=== PATIENT | male | born 1990 | race Caucasian/White ===

== ENCOUNTER 2016-09-11 23:20 | Emergency (ER) | payer BC, OTHER ==
--- NOTE | ~2016-09-11 | CR72 ---
[facility]. [facility] A Service of [facility] & [facility] RADIOLOGY TEXT RESULTS PATIENT: DONNIE DIANA LOCATION: SEDOF [id number] : [birth year] UNIT #: [id number] AGE: [address]: INDIO ENAMORADO MD SEX: M ORDER DR: [id number] [address] [address] [id number] MR#: [id number] #: [id number] NAME: DONNIE DIANA : 1990 SEX: M STUDY DATE/TIME: 09/11/2016 23:09 UNIT: SEDOF ROOM: [facility] STUDY DESCRIPTION: CR Chest Single View Portable Attending Physician: Indio Enamorado M.D. Ordering Physician: Nilton Estrada M.D. Primary Care Physician: Primary Care Physician No MEDICAL IMAGING REPORT This report is preliminary unless electronic signature is present. EXAM Portable chest HISTORY Shortness of air. Drug abuse. Meth today. FINDINGS A single AP portable view of the chest shows both lungs to be clear. The heart is normal in size. The mediastinal contour is normal. No significant bone abnormalities are seen. IMPRESSION Normal portable chest. Dictated by... Marquis Espinoza M.D. THIS IS AN ELECTRONICALLY VERIFIED REPORT Marquis Espinoza M.D. at 09/12/2016 3:20 PM DFL/jackson TD: 09/12/2016 09:02 JOB #: [id number] MEDICAL IMAGING REPORT
--- NOTE | ~2016-09-11 | EKG ---
PATIENT: DONNIE DIANA UNIT #: [id number] Ventricular Rate: 120 BPM Atrial Rate: 120 BPM P-R Interval: 128 ms QRS Duration: 94 ms Q-T Interval: 350 ms QTC Calculation(Bezet): 494 ms P Notus: 82 degrees Calculated R Notus: 94 degrees Calculated T Notus: 72 degrees Diagnosis Line: Sinus tachycardia Diagnosis Line: Rightward axis Diagnosis Line: Borderline ECG Diagnosis Line: No previous ECGs available Diagnosis Line: Confirmed by VERONICA RATLIFF MD ([id number]) on Diagnosis Line: 09/13/2016 12:22:14 PM INTERPRETING MD: YONI
[2016-09-11 23:17] LABS: BASOPHIL% 0.4 % (0-2.5); EOSINOPHIL# 0.1 X10e3 (0-0.7); EOSINOPHIL% 0.7 % (0.0-7.0); HEMATOCRIT 41.8 % (38.0-50.0); HEMOGLOBIN 14.4 gm/dL (13.0-16.0); LYMPHOCYTE# 3.2 X10e3 (1.0-3.5); LYMPHOCYTE% 32.6 % (17.0-45.0); MEAN CELL VOLUME 88.9 FL (83-96); MEAN CORPUSCULAR HEMOGLOBIN 30.7 PG (28-34); MEAN CORPUSCULAR HGB CONC 34.6 g/dL (30-36); MEAN PLATELET VOLUME 7.2 FL (6.5-11.5); MONOCYTE# 0.7 X10e3 (0-1.0); NEUTROPHIL# 5.9 X10e3 (1.5-7.1); NEUTROPHIL% 59.3 % (40-75); PLATELET COUNT 309 X10e3 (140-420); RED CELL DISTRIBUTION WIDTH 13.4 % (11.0-15.5); WHITE BLOOD COUNT 9.9 X10e3 (4.0-10.5)
[2016-09-11 23:18] LABS: DIFF IND NO
[~2016-09-11 23:20] MED LIST: AMITRYPTYLINE PO; COGENTIN PO; LORTAB 101 TAB 10/5 PO; NO MEDICATIONS; PERIACTIN4 MG PO; RISPERIDONE PO; SEROQUEL PO; TRILEPTAL PO; VISTARIL PO
[2016-09-11 23:23] LABS: INR 1.3; PROTHROMBIN TIME (PATIENT) 14.5 SECONDS (9.5-12.4)
[2016-09-11 23:31] LABS: PARTIAL THROMBOPLASTIN TIME 26.8 SECONDS (25.6-38.1)
[2016-09-11 23:32] LABS: ALBUMIN SERUM 5.1 g/dL (3.5-5.0); ALKALINE PHOSPHATASE 110 U/L (32-92); ALT (SGPT) 86 U/L (10-40); AST (SGOT) 63 U/L (10-42); BILIRUBIN, DIRECT 0.1 mg/dL (0.0-0.2); BILIRUBIN,INDIRECT 0.6 mg/dL (0.0-0.9); BILIRUBIN,TOTAL 0.7 mg/dL (0.2-2.0); BLOOD UREA NITROGEN 15 mg/dL (9-23); CALCIUM SERUM 10.1 mg/dL (8.4-10.2); CARBON DIOXIDE 23 mmol/L (22-31); CHLORIDE 102 mmol/L (100-111); GLOM FILT RATE Estimated ABOVE60 mL/min (>60); GLUCOSE FASTING 118 mg/dL (70-110); POTASSIUM 3.3 mmol/L (3.5-5.1); PROTEIN TOTAL SERUM 8.6 g/dL (6.0-8.3); SODIUM 135 mmol/L (135-145)
[2016-09-11 23:36] LABS: POC - CKMB 10.1 ng/mL (0.0-7.9); POC - TROPONIN <0.05 ng/mL (<=0.05)
[2016-09-11 23:38] LABS: DDIMER <200 NG/ML (0-200)
[2016-09-11 23:52] LABS: URINE SOURCE CLEAN CATCH
[2016-09-11 23:54] LABS: URINE APPEARANCE CLEAR; URINE BILIRUBIN NEG (NEG); URINE BLOOD NEG (NEG); URINE COLOR YELLOW; URINE GLUCOSE NEG (NORM); URINE KETONE NEG (NEG); URINE LEUKOCYTE ESTERASE NEG (NEG); URINE NITRATE NEG (NEG); URINE PH 7.5 (5-8); URINE PROTEIN NEG (NEG); URINE SPECIFIC GRAVITY <=1.005 (1.003-1.035); URINE UROBILINOGEN 0.2 MG/DL (NORM)
[2016-09-11 23:55] LABS: MICRO INDICATED? NO
[2016-09-12 00:04] LABS: AMPHETAMINE POS (NEG); BARBITURATES NEG (NEG); BENZODIAZEPINES NEG (NEG); COCAINE NEG (NEG); MARIJUANA NEG (NEG); OPIATES NEG (NEG); TRICYCLIC ANTIDEPRESSANTS POS (NEG); U METHADONE NEG (NEG)
[2016-09-12] MEDS ORDERED: AMITRIPTYLINE H25 MG PO (08:09)
[2016-09-12] MEDS ORDERED: COGENTIN1 MG PO (08:10)
[2016-09-12] MEDS ORDERED: COGENTIN1 M1 PO (08:10)
[2016-09-12] MEDS ORDERED: PERIACTIN4 M1 PO (08:11)
[2016-09-12] MEDS ORDERED: HYDROXYZINE HCL50 MG PO (08:12)
== END 2016-09-12 02:50 | disposition home or self-care (01) ==
LOC: SED 23:20
PROVIDERS: Emergency Medicine
DX: F15.10 Other stimulant abuse, uncomplicated (principal); M62.82 Rhabdomyolysis; J45.909 Unspecified asthma, uncomplicated
CPT/HCPCS: 36415; 71010; 80048; 80076; 80307; 81003; 82550; 82553; 83874; 84484; 85025; 85379; 85610; 85730; 87491; 87591; 93005; 96361; 96374; 99285; J2060

== ENCOUNTER 2016-09-12 05:10 | Inpatient (IN) | payer BC, OTHER ==
--- NOTE | ~2016-09-12 | DS ---
Unit #: [id number] #: [id number] Patient: DONNIE DIANA [id number] [address] [place], [place] [address] [id number] MR#: [id number] NAME: DONNIE DIANA ROOM: 213 Age: 26 Sex: M Admission Date: 09/12/2016 : 1990 Discharge Date: 09/14/2016 Attending Physician: Justus Murphy M.D. Primary Care Physician: No Primary Care Physician DISCHARGE SUMMARY DIAGNOSIS ON ADMISSION Acute rhabdomyolysis. DIAGNOSES ON DISCHARGE 1. Acute rhabdomyolysis, resolved. 2. Chronic hepatitis C. 3. Bronchial asthma. LABS AND PROCEDURES DONE LABORATORY: The patient's creatinine is 0.9, sodium 139, potassium is 4.1. AST 35, ALT was 52. INR was 1.3. The patient's WBC is 7.9, hemoglobin was 13.5, platelet count was 245. Urinalysis was negative. Urine tox screen was positive for amphetamines and tricyclic antidepressants. The patient's total CK on admission was 3209. Yesterday it was 1019 and improving. Magnesium level is 2.1. IMAGING: Chest x-ray was normal. HOSPITAL COURSE A 26-year-old male was admitted with acute rhabdomyolysis. Details are as per admission H and P. The patient was treated with IV fluids. Patient has responded well and is feeling much better. Patient had last used heroin prior to the admission. Patient has complained of initially some burning on urination. Urinalysis is negative. Urine test was sent for gonorrhea and chlamydia but it seems like it was not done. Patient currently denies having and symptom so I advised him to follow up with his primary care physician. PHYSICAL EXAMINATION GENERAL: Today patient is comfortable, is not in acute distress. VITAL SIGNS: Reveal a temperature of 98 degrees, pulse is 87 per minute, respiratory rate is 16 per minutes, blood pressure 108/72. HEENT: Examination revealed no conjunctival congestion. Sclerae are anicteric. NECK: Neck is supple. Trachea is central. RESPIRATORY: Examination revealed breath sounds equal bilaterally. There are no wheezes or crackles. HEART: Heart is regular rate and rhythm, S1, S2. ABDOMEN: Abdomen is soft, nontender. Bowel sounds are present in all four quadrants. NEUROLOGIC: Neurologically the patient is alert to person, place and time. Power is 5/5 bilaterally. Sensations are grossly intact. SKIN: Skin is warm and dry. Unit #: [id number] #: [id number] Patient: DONNIE DIANA CONSULTATION Dr. Basurto was requested to see patient in consult but he has not seen patient so far. Patient stated that he will follow up with his own psychiatrist. RECOMMENDATIONS ON DISCHARGE 1. Condition stable. 2. Activity as tolerated. DISCHARGE MEDICATIONS Medications are: 1. Amitriptyline 25 mg p.o. daily. 2. Periactin 4 mg p.o. t.i.d. 3. Cogentin 1 mg p.o. q.a.m. and 2 mg p.o. q.h.s. 4. Vistaril 25 mg p.o. t.i.d. p.r.n. which is a home medication. FOLLOWUP Patient is advised to follow up with: 1. Primary care physician in one week. 2. Psychiatry in one to two weeks. NOTE Patient is advised to call primary care physician or go to ER if his condition changes. Patient's father states that he is planning to take patient to [place] for rehab but I have advised patient to call our office in two to three days to know the results of urine gonorrhea and chlamydia. The patient states they will call even if they go to [place]. The plan was discussed in detail with the patient. The plan has also been discussed with the patient's parents. Dictated by... Dexter Rizo TD: 09/14/2016 15:19 JOB #: [id number] DISCHARGE SUMMARY X Belkys Echavarria MD X DISCHARGE SUMMARY
--- NOTE | ~2016-09-12 | HP ---
Unit #: [id number] #: [id number] Patient: DONNIE DIANA 1990 [facility] [address] [place], [place] [address] [id number] MR#: [id number] NAME: DONNIE DIANA ROOM: 213 Age: 26 Sex: M Admission Date: 09/12/2016 : 1990 Attending Physician: Justus Murphy M.D. Primary Care Physician: No Primary Care Physician HISTORY AND PHYSICAL DIAGNOSES ON ADMISSION 1. Acute rhabdomyolysis. 2. Heroin use. HISTORY OF PRESENT ILLNESS A 26-year-old male presented to emergency room with shortness of air. The patient was seen at [facility]. The patient was earlier seen at [facility] Emergency Room where he was admitted and left AMA and had increased anxiety since then, so presented to the ER. The patient was seen in the ER. His total CPK level was elevated. Therefore, it was decided to admit him in the hospital. The patient stated that his last use of heroin was yesterday. The patient is also complaining of burning on urination and stated that he has some discharge from his penis. The patient denies fever, chills, or cough. There is no history of headache or visual problems. The rest of the systems were reviewed and are negative. PAST MEDICAL HISTORY 1. The patient has paranoid schizoaffective disorder. 2. Chronic hepatitis C. 3. Bronchial asthma. 4. History of eating disorder. PAST SURGICAL HISTORY None. HOME MEDICATIONS 1. Risperdal. 2. Cogentin. 3. Vistaril. 4. Periactin. 5. Seroquel. 6. Amitriptyline. 7. Trileptal. ALLERGIES No known drug allergies. SOCIAL HISTORY The patient smokes one pack of cigarettes per day and admits to using heroin. FAMILY HISTORY The patient denies any history of significant family history. Unit #: [id number] #: [id number] Patient: DONNIE DIANA PHYSICAL EXAMINATION GENERAL: The patient was sitting comfortably in bed, not in any obvious acute stress. VITAL SIGNS: Reveal temperature of 98.2, pulse is 77 per minute, respiratory rate is 14 per minute, blood pressure is 128/68. HEENT: Revealed no conjunctival congestion. Sclerae is nonicteric. NECK: Supple. Trachea is central. RESPIRATORY: Revealed decreased breath sounds bilaterally. There are no wheezes or crackles. HEART: Regular rate and rhythm. S1, S2. ABDOMEN: Soft, nontender. Bowel sounds are present in all four quadrants. NEUROLOGIC: The patient is alert to person, place, and time. Power is 5/5 bilaterally. Sensations are grossly intact. SKIN: Warm and dry. DIAGNOSTIC STUDIES LABORATORY: The patient's creatinine was 1, sodium 135, potassium 3.5. AST was 63, ALT was 86. INR was 1.3. WBC 9.9, hemoglobin 14.4, platelet count 309,000. Urinalysis was negative. Urine tox screen was positive for amphetamine and tricyclic antidepressants. The patient's total CK level was 3209. IMAGING: Chest x-ray was normal. ASSESSMENT AND PLAN 1. A 26-year-old male presented to the hospital with shortness of air, anxiety and is admitted with acute rhabdomyolysis. The patient is on IV fluids. He is feeling much better. We will repeat patient's total CPK level in the morning. The night of discharge, I will check patient for gonorrhea and Chlamydia. 2. Paranoid schizoaffective disorder: Will continue patient's home medications. The plan was discussed in detail with patient and also in detail with patient's parents who showed complete understanding and agree with the plan. All of their questions were answered to their apparent satisfaction. I will also request Dr. Basurto to see patient in psych consult. Dictated by Dexter Rizo/donovan TD: 09/12/2016 15:20 JOB #: [id number] Unit #: [id number] #: [id number] Patient: DIANA,DONNIE HISTORY AND PHYSICAL X Belkys Echavarria MD HISTORY AND PHYSICAL
[2016-09-12] MEDS ORDERED: AMITRIPTYLINE H25 MG PO (08:09)
[2016-09-12] MEDS ORDERED: COGENTIN1 MG PO (08:10)
[2016-09-12] MEDS ORDERED: COGENTIN1 M1 PO (08:10)
[2016-09-12] MEDS ORDERED: PERIACTIN4 M1 PO (08:11)
[2016-09-12] MEDS ORDERED: HYDROXYZINE HCL50 MG PO (08:12)
[2016-09-13 05:40] LABS: BASOPHIL# 0.1 X10e3 (0-0.3); BASOPHIL% 0.9 % (0-2.5); EOSINOPHIL# 0.5 X10e3 (0-0.7); EOSINOPHIL% 8.8 % (0.0-7.0); HEMATOCRIT 33.1 % (38.0-50.0); LYMPHOCYTE# 2.6 X10e3 (1.0-3.5); LYMPHOCYTE% 46.1 % (17.0-45.0); MEAN CELL VOLUME 90.6 FL (83-96); MEAN CORPUSCULAR HEMOGLOBIN 30.4 PG (28-34); MEAN CORPUSCULAR HGB CONC 33.6 g/dL (30-36); MEAN PLATELET VOLUME 7.7 FL (6.5-11.5); MONOCYTE# 0.5 X10e3 (0-1.0); NEUTROPHIL% 35.2 % (40-75); PLATELET COUNT 209 X10e3 (140-420); RED BLOOD COUNT 3.65 X10e (3.90-5.60); RED CELL DISTRIBUTION WIDTH 13.7 % (11.0-15.5); WHITE BLOOD COUNT 5.6 X10e3 (4.0-10.5)
[2016-09-13 05:53] LABS: HEMOGLOBIN 11.1 gm/dL (13.0-16.0)
[2016-09-13 05:55] LABS: DIFF IND NO
[2016-09-13 06:30] LABS: ALKALINE PHOSPHATASE 67 U/L (32-92); ALT (SGPT) 52 U/L (10-40); AST (SGOT) 35 U/L (10-42); BILIRUBIN,TOTAL 0.5 mg/dL (0.2-2.0); BLOOD UREA NITROGEN 8 mg/dL (9-23); BUN/CREATININE RATIO 13.33; CARBON DIOXIDE 19 mmol/L (22-31); CHLORIDE 117 mmol/L (100-111); CREATININE SERUM 0.6 mg/dL (0.6-1.4); GLOM FILT RATE Estimated ABOVE60 mL/min (>60); GLUCOSE FASTING 82 mg/dL (70-110); PROTEIN TOTAL SERUM 5.3 g/dL (6.0-8.3); SODIUM 143 mmol/L (135-145)
[2016-09-13 06:31] LABS: POTASSIUM 2.8 mmol/L (3.5-5.1)
[2016-09-13 21:47] LABS: MAGNESIUM 2.1 mg/dL (1.6-3.0); POTASSIUM 4.2 mmol/L (3.5-5.1)
[2016-09-14 06:22] LABS: HEMATOCRIT 40.2 % (38.0-50.0); MEAN CELL VOLUME 90.6 FL (83-96); MEAN CORPUSCULAR HEMOGLOBIN 30.4 PG (28-34); MEAN CORPUSCULAR HGB CONC 33.5 g/dL (30-36); MEAN PLATELET VOLUME 7.5 FL (6.5-11.5); RED BLOOD COUNT 4.43 X10e (3.90-5.60); RED CELL DISTRIBUTION WIDTH 13.6 % (11.0-15.5); WHITE BLOOD COUNT 7.9 X10e3 (4.0-10.5)
[2016-09-14 06:26] LABS: HEMOGLOBIN 13.5 gm/dL (13.0-16.0)
[2016-09-14 07:08] LABS: BLOOD UREA NITROGEN 12 mg/dL (9-23); BUN/CREATININE RATIO 13.33; CARBON DIOXIDE 25 mmol/L (22-31); CHLORIDE 107 mmol/L (100-111); CREATININE SERUM 0.9 mg/dL (0.6-1.4); GLOM FILT RATE Estimated ABOVE60 mL/min (>60); GLUCOSE FASTING 93 mg/dL (70-110); POTASSIUM 4.1 mmol/L (3.5-5.1); SODIUM 139 mmol/L (135-145)
[2016-09-17 09:16] LABS: CHLAMYDIA TRACH Not Detected (Not Detected); N GONOR Not Detected (Not Detected)
== END 2016-09-14 13:36 | disposition home or self-care (01) | DRG 558 ==
LOC: CED 05:10 → CEDOF 06:00 → C2A 08:42
PROVIDERS: Emergency Medicine; Internal Medicine
DX: M62.82 Rhabdomyolysis (principal); K73.9 Chronic hepatitis, unspecified; F50.9 Eating disorder, unspecified; F20.0 Paranoid schizophrenia; F11.90 Opioid use, unspecified, uncomplicated; J45.909 Unspecified asthma, uncomplicated; F17.210 Nicotine dependence, cigarettes, uncomplicated
CPT/HCPCS: 36415; 80048; 80053; 82550; 83735; 84132; 85025; 85027; 87491; 87591; 99285